=== PATIENT | female | born 1985 | race Caucasian/White ===

== ENCOUNTER 2022-09-11 23:01 | Emergency (ER) | payer OTHER, SELFPAY ==
--- NOTE | ~2022-09-11 | XR_ITS ---
EXAMINATION: XR HAND, LEFT CLINICAL INFORMATION: Dog bite/trauma COMPARISON: None TECHNIQUE: PA, lateral, and oblique views of the left hand. FINDINGS: No fracture or dislocation. No radiodense foreign body. No tracking soft tissue gas. The joint spaces throughout the hand and wrist are maintained. No osteophytes or erosions. XR/XR hand LT 2V IMPRESSION: No acute osseous injury or radiodense foreign body.
[2022-09-11 23:13] VITALS: BP 107/48; PULSE 86; RESP 18; TEMP 36.8; O2SAT 98; BMI 32.3
[2022-09-11 23:42] VITALS: BP 110/68; PULSE 88; RESP 18; TEMP 36.7; O2SAT 98
--- NOTE | 2022-09-12 00:33 | ED.ANIMALBIT ---
HPI - Animal Bite General Chief Complaint: Animal Bite Stated Complaint: dog bite Time Seen by Provider: 09/11/22 23:58 Source: patient Mode of arrival: ambulatory History of Present Illness HPI narrative: 37-year-old female who reached into the middle of it dog fight, the dog is known to her and is completely vaccinated, patient reports that she is vaccinated with tetanus. Related Data Allergies Allergy/AdvReac Type Severity Reaction Status Date / Time No Known Allergies Allergy Verified 09/11/22 23:13 Review of Systems Review of Systems: Pertinent positives and negatives as stated in HPI 10 point review of systems is otherwise negative. PMFSH Past Medical History Source: nursing notes reviewed Social History Social History Advance Directives: No Advance Directives Information Provided: No Physical Exam ED Vital Signs: Vital Signs - 24 hr 09/11/22 23:13 09/11/22 23:42 Temperature 98.2 F 98.1 F Pulse Rate 86 88 Respiratory Rate 18 18 Blood Pressure 107/48 L 110/68 Pulse Oximetry 98 98 Oxygen Delivery Method Room Air Room Air BMI result Body Mass Index 32.3 VITAL SIGNS: Reviewed. GENERAL: Well developed, well nourished, in no acute distress. HEAD: Normocephalic/atraumatic EYES: PERRLA, EOMI EARS: Ext canals without abnormality OROPHARYNX: no oral lesions noted, posterior pharynx clear LUNGS: Normal breath sounds. No adventitious sounds or accessory muscle use. SpO2<98> CARDIOVASCULAR: Regular rate and rhythm without noted murmurs ABDOMEN: Soft, non-tender, non-distended with bowel sounds. MUSCULOSKELETAL: No tenderness, deformities, or effusions noted on gross inspection. EXTREMITIES: No cyanosis, clubbing or edema; LEFT HAND: An area of 1.5 cm laceration located at the left thenar, full range of motion is noted of the thumb SKIN: Inspection of the skin reveals no rashes NEUROLOGIC: Alert and oriented x 4. Strength and sensation to light touch were grossly intact x 4. Course Course Course Narrative: 37-year-old female with history and clinical presentation consistent with dog bite in a provoked situation, patient is up-to-date on vaccines, review of x-ray does not demonstrate any soft tissue air, fracture and patient will have 2 sutures placed and be discharged home in stable condition with instructions to follow-up for suture removal in 7 days. Procedures Laceration Laceration 1: Site: hand Side (If applicable): left Size (cm): 1.5 Description: linear Depth: simple, single layer Local Anesthetic: lidocaine 1% Amount of anesthesia used (mL): 2 Pre-repair: wound explored, irrigated extensively and deep structures intact Skin layer closed with: nylon Size (cm): 4-0 Number of sutures: 2 Technique: simple, interrupted Discharge Plan Discharge Clinical Impression: Dog bite, Laceration of hand, left Patient Disposition: Home, Self-Care Instructions: Animal Bite (ED), Laceration (ED) Additional Instructions: 1. You may gently wash the area with soap and water and reapply antibiotic ointment with a Band-Aid. 2. Please return either to your primary care provider or to this ER for the removal of your sutures in 7 days. Return to the ER for any redness, swelling, fevers or chills. Referrals: Tori Glover NP [Primary Care Provider] -
== END 2022-09-12 01:20 | disposition home or self-care (01) ==
PROVIDERS: Emergency Provider Student in an Organized Health Care Education/Training Program; PCP Registered Nurse
DX: S61.412A Laceration without foreign body of left hand, initial encounter (principal); W54.0XXA Bitten by dog, initial encounter; Y93.9 Activity, unspecified; Y92.9 Unspecified place or not applicable; Y99.9 Unspecified external cause status; Z79.899 Other long term (current) drug therapy
CPT/HCPCS: 12001; 73120; 99283

== ENCOUNTER 2023-08-30 15:30 | Outpatient (AMB) | payer OTHER, SELFPAY ==
[2023-08-30 15:59] VITALS: BP 100/70; PULSE 96; TEMP 36.3; O2SAT 98; BMI 35.9
--- NOTE | 2023-08-30 15:59 | AM.OFFWIN_ITS ---
Intake Vital Signs 08/30/23 15:59 Height 4 ft 11 in Weight 80.739 kg BMI 35.9 BP 100/70 Blood Pressure Location Rt brachial Position Sitting Pulse 96 Pulse Source Pulse Oximeter Temp 97.3 F Temp Source Temporal Artery Scan Pulse Oximetry (%) 98 Oxygen Delivery Method Room Air Intake Visit Reasons: EP, r Intake Note: pt is here today for rt ankle pain started 2 days ago Patient Tobacco Use Status: Never used Tobacco Allergies No Known Allergies Allergy (Verified 08/30/23 16:24) Do you need a note to return to daycare/school/sports/work: Yes HPI HPI Comments History of Present Illness Details 1631 37-year-old female presents with complai nts of right ankle pain for the past few days, patient reports it started as an aching pain, progressively worsening she is sure if she rolled her ankle or not but she thinks she may have a few days ago she says her sister was looking at her ankle and pressing on it and made pain worse. Patient denies fall, blunt trauma. Denies numbness and tingling. Is using a crutch for help with ambulation. Has not taken anything for pain. Denies previous injuries to this ankle. No numbness, tingling, fevers or chills. Physical exam tenderness to palpation to the lateral aspect of right malleolus. No step-offs or deformities. 2+ dorsalis pedis, anterior tibialis posterior tibialis pulses equal bilateral. No foot drop. Normal sensation distally and normal capillary refill to bilateral lower extremities History and physical exam concerning for sprain/strain. Unlikely fracture dislocation. Unlikely threat to limit neurovascular compromise. Plan prednisone, no calabrese min, x-ray and orthopedic consult. Educated patient on diagnosis and treatment plan, answered all question, patient verbalizes understanding. At this time patient will be discharged home, advised to return with new or worsening symptoms. Educated on worrisome signs and symptoms and when to return. At this time I feel comfortable discharge home. [facility] Social History Patient Tobacco Use Status: Never used Tobacco Review of Systems Const Details: Constitutional : No Weight loss, No Fever, No Chills, No Fatigue, No Malaise ENT/Mouth : No sore throat, No Rhinorrhea Eyes: No Eye Pain, No Swelling, No Redness Cardiovascular : No Chest Pain, No SOB, No Dyspnea on Exertion, No Orthopnea, No Edema, No Palpitations Respiratory : No Cough, No Sputum, No Wheezing Gastrointestinal : No Nausea, No Vomiting, No Diarrhea, No Constipation, No abdominal Pain, No Hematochezia, No Melena Genitourinary : No Dysuria, No Urinary Frequency, No Hematuria, Musculoskeletal : + joint pain, No Myalgias, + Joint Swelling Skin : No Skin Lesions, No rash Neuro : No Weakness, No Numbness, No Dizziness, No Headache Psych : No Anxiety/Panic, No Depression All other systems reviewed and are negative All systems reviewed & are unremarkable except as noted in HPI and below Physical Exam Vital Signs: Last Vital Signs Temp 97.3 F 08/30/23 15:59 Pulse 96 08/30/23 15:59 BP 100/70 08/30/23 15:59 Pulse Ox 98 08/30/23 15:59 Oxygen Delivery Method Room Air 08/30/23 15:59 BMI result Body Mass Index 35.9 vss Appearance: Alert.? Oriented X3.? No acute distress.? Head: Normocephalic, atraumatic, no step-offs or deformities Eyes: Pupils equal, round and reactive to light.? Neck: Normal inspection.? Neck supple.? CVS: Normal heart rate and rhythm.? Pulses normal.? Respiratory: No respiratory distress.? Breath sounds normal.? Abdomen: Soft and nontender.? Skin: Skin warm and dry.? Normal skin color.? Normal skin turgor.? Extremities: No lower extremity edema.? No calf ttp. 5/5 strength to bilateral upper and lower extremities + tenderness to palpation to the lateral aspect of right malleolus. No step-offs or deformities. 2+ dorsalis pedis, anterior tibialis posterior tibialis pulses equal bilateral. No foot drop. Normal sensation distally and normal capillary refill to bilateral lower extremities Neuro: Oriented X 3.? No motor deficit.? No sensory deficit. CN 2-12 intact Assessment & Plan Assessment & Plan (1) Right ankle pain: Code(s): M25.571 - Pain in right ankle and joints of right foot Plan Take your medications as prescribed. If you were prescribed antibiotics today, it is important that you take your medication to their entirety, do not skip any doses, do not finish them early. Follow-up with your primary care provider this week. Return to the emergency department with new or worsening symptoms. Such as fevers, chills, chest pain, shortness of breath, nausea, vomiting, dizziness, headache, vision changes, lethargy In case of emergency call 911 Orders: Orders XR ankle RT 2V Today M25.571 - Pain in right ankle and joints of right foot Referrals Orthopedics Referral M25.571 - Pain in right ankle and joints of right foot Medications: New prednisone 20 mg PO DAILY 5 tabs 0RF 5 days naproxen 500 mg PO BID PRN 14 tabs 0RF pain Coding Level of Care Code Est Pt Level 3 (45092) Diagnoses Right ankle pain M25.571
== END 2023-08-30 16:55 | disposition home or self-care (01) ==
PROVIDERS: PCP Registered Nurse; Visit Provider Physician Assistant
DX: M25.571 Pain in right ankle and joints of right foot (principal)
CPT/HCPCS: 99213

== ENCOUNTER 2023-08-30 16:34 | Outpatient (REF) | payer OTHER, SELFPAY ==
--- NOTE | ~2023-08-30 | XR_ITS ---
EXAMINATION: XR ANKLE, RIGHT CLINICAL INFORMATION: Pain. COMPARISON: None available. TECHNIQUE: AP, lateral, and mortise views of the right ankle. FINDINGS: No evidence of acute fractures or malalignment. Ankle mortise is maintained. Mild diffuse nonspecific soft tissue thickening. No unexpected radiopaque foreign bodies. No abnormal soft tissue calcifications. XR/XR ankle RT 2V IMPRESSION: 1. No acute fractures or malalignment. 2. Mild nonspecific soft tissue thickening.
== END 2023-08-30 16:35 | disposition home or self-care (01) ==
LOC: HO.HMGCX 16:34
PROVIDERS: Visit Provider Physician Assistant
DX: M25.571 Pain in right ankle and joints of right foot (principal)
CPT/HCPCS: 73600

== ENCOUNTER 2023-10-26 09:33 | Outpatient (AMB) | payer OTHER, SELFPAY ==
--- NOTE | 2023-10-26 09:34 | A.OFFVIS_ITS ---
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 States she is not sure if she rolled her ankle approx on 08/28/23. States that she is only having pain in the ankle with increased activity or prolonged driving. Denies numbness and tingling. Seen with her PCP who made referral to orthopedics for further evaluation. Allergies No Known Allergies Allergy (Verified 08/30/23 16:24) Medication List - Last Reviewed 10/26/23 by NENA Mancini bupropion HCl 300 mg PO DAILY lorazepam 0.5 mg PO DAILY PRN sertraline mg PO HPI HPI Comments History of Present Illness Details Does not remember specifically what would have caused this. Points to lateral ankle. Overall pain has improved except when she has to drive. Pain is worse when she drives to work to the point she can't walk the day after. Otherwise there is no pain when she is working from home. Swelling has gotten better. Denies numbness. Treatment done so far: NSAIDs, was prescribed prednisone also [facility] Social History (Updated 10/26/23 @ 09:38 by Norma Nunez [facility]) Patient Tobacco Use Status: Never used Tobacco Current occupational status: employed Current occupation: [employer] Review of Systems Const All systems reviewed & are unremarkable except as noted in HPI and below Physical Exam Vital Signs: BMI result Body Mass Index 0.5 Constitutional: Patient appears to be in no acute distress, well nourished and well developed. MSK: No tenderness on/around medial malleolus, lateral malleolus, plantar fascia or Achillis tendon. Able to dorsiflex, plantar flex, invert, miya, without any pain. Able to stand at foot or heel without any pain. No ankle instability. Strength is 5/5 in all muscle groups tested. No increased tone noted. Neurological: Neurologic examination of the upper and lower extremities was nonfocal with intact sensation, muscle stretch reflexes and without focal motor deficits . Wharton?s negative bilaterally. Babinski was down going bilaterally. Clonus was negative. Gait is non-antalgic without loss of balance. Results Reviewed Results Reviewed: I independently reviewed the results of the following: Ankle x-ray done 08/30 was unremarkable. I reviewed records from the following: PCP Assessment & Plan Assessment & Plan (1) Right ankle sprain: Code(s): S93.401A - Sprain of unspecified ligament of right ankle, initial encounter Qualifiers: Encounter type: initial encounter Involved ligament of ankle: tibiofibular ligament Qualified Code(s): S93.431A - Sprain of tibiofibular ligament of right ankle, initial encounter Plan Suspect she had a right lateral ankle sprain, which is in the process of healing now, no signs of inflammation anymore. She has full range of motion and strength. Would put her on a lace-up ankle brace that she can wear when she drives or has to walk a lot or go to work. Continue to elevate and ice when at home. More importantly, discussed importance of good shoes with ankle stability. Assessment and plan discussed with patient, and patient was agreeable. All questions were answered thoroughly. Follow-up in 4-6 weeks. Call sooner if needed. Sheila Diaz MD, MAHNAZ Board Certified, [place] Board [employer] and Rehabilitation (ABPMR) Board Certified, [place] Board [employer] Electrodiagnostic Medicine (ABEM) Medications: Discontinued naproxen Discontinued Reason: Patient Completed Course 500 mg PO BID PRN 14 tabs 0RF pain Coding Level of Care Code New Pt Level 4 (32248) Diagnoses Sprain of tibiofibular ligament of right ankle, initial encounter S93.431A Encounter type: initial encounter Involved ligament of ankle: tibiofibular ligament
== END 2023-10-26 10:13 | disposition home or self-care (01) ==
PROVIDERS: PCP Registered Nurse; Visit Provider Physical Medicine & Rehabilitation
DX: S93.431A Sprain of tibiofibular ligament of right ankle, initial encounter (principal)
CPT/HCPCS: 99204

== ENCOUNTER → 2023-10-26 09:33 | Outpatient (BNVA) | payer OTHER, SELFPAY | PROVIDERS: PCP Registered Nurse; Visit Provider Physical Medicine & Rehabilitation ==

== ENCOUNTER 2023-12-07 10:05 | Outpatient (AMB) | payer OTHER, SELFPAY ==
--- NOTE | 2023-12-07 10:06 | A.OFFVIS_ITS ---
Intake Intake Visit Reasons: OV - right ankle sprain Intake Note: Yuly is a 38 year old female who presents today for a follow up visit for her right ankle sprain. Patient reports her pain has improved a little since her last visit. She states that the lace up ankle brace is making her pain worse when she was driving. Currently is having dull pain on the ankle. Allergies No Known Allergies Allergy (Verified 12/07/23 10:09) Medication List - Last Reconciled 12/07/23 by Sheila Diaz MD bupropion HCl 300 mg PO DAILY lorazepam 0.5 mg PO DAILY PRN sertraline mg PO HPI HPI Comments History of Present Illness Details Does not remember specifically what would have caused this. Points to lateral ankle. Overall pain has improved except when she has to drive. Pain is worse when she drives to work to the point she can't walk the day after. Otherwise there is no pain when she is working from home. Swelling has gotten better. Denies numbness. Treatment done so far: NSAIDs, was prescribed prednisone also Does not think she's improved a lot, maybe 50% better only. Pointing on anterior ankle. No swelling noted. Aches a lot. Used lace up brace but felt worse when worn during driving. Overall going on for 3 months since onset. But has not had PT yet. Although she admits that she does not have much pain anymore except for some ache or weird sensation. She has not driven to work in the last 2 weeks and maybe that has helped with improvement. [facility] Social History (Updated 12/07/23 @ 10:10 by Jose Elise) Alcohol intake: never Patient Tobacco Use Status: Never used Tobacco Current occupational status: employed Current occupation: [employer] Physical Exam Constitutional: Patient appears to be in no acute distress, well nourished and well developed. MSK: Less tenderness around Lateral malleolus right. No tenderness on/around medial malleolus, plantar fascia or Achillis tendon. Able to dorsiflex, plantar flex, invert, miya, without any pain. Able to stand at foot or heel without any pain. No ankle instability. Strength is 5/5 in all muscle groups tested. No increased tone noted. Able to stand on heels and toes. Neurological: Neurologic examination of the upper and lower extremities was nonfocal with intact sensation, muscle stretch reflexes and without focal motor deficits . Wharton?s negative bilaterally. Babinski was down going bilaterally. Clonus was negative. Gait is non-antalgic without loss of balance. Results Reviewed Results Reviewed: Ordering Physician: Fredy Thompson Date of Service: 08/30/23 Procedure(s): XR ankle RT 2V Accession Number(s): [id number] cc: Fredy Thompson~ EXAMINATION: XR ANKLE, RIGHT CLINICAL INFORMATION: Pain. COMPARISON: None available. TECHNIQUE: AP, lateral, and mortise views of the right ankle. FINDINGS: No evidence of acute fractures or malalignment. Ankle mortise is maintained. Mild diffuse nonspecific soft tissue thickening. No unexpected radiopaque foreign bodies. No abnormal soft tissue calcifications. XR/XR ankle RT 2V IMPRESSION: 1. No acute fractures or malalignment. 2. Mild nonspecific soft tissue thickening. Assessment & Plan Assessment & Plan (1) Right ankle sprain: Code(s): S93.401A - Sprain of unspecified ligament of right ankle, initial encounter Qualifiers: Encounter type: initial encounter Involved ligament of ankle: tibiofibu lar ligament Qualified Code(s): S93.431A - Sprain of tibiofibular ligament of right ankle, initial encounter Plan On exam it appears to have improved, without any signs of tenderness, swelling or redness. At this point it would be reasonable to start her on physical therapy for range of motion and gradual strengthening. She can go back to driving with or without the lace-up brace. Would still encourage using the lace-up brace when she will be walking a lot. No restrictions. But watch out for any development redness, swelling or ankle giving out. Assessment and plan discussed with patient, and patient was agreeable. All questions were answered thoroughly. Follow-up 3 months. Sheila Diaz MD, MAHNAZ Board Certified, [place] Board [employer] and Rehabilitation (ABPMR) Board Certified, [place] Board [employer] Electrodiagnostic Medicine (ABEM) Orders: Orders PT Evaluation and Treatment Today S93.401A - Sprain of unspecified ligament of right ankle, initial encounter Coding Level of Care Code Est Pt Level 3 (48653) Diagnoses Sprain of tibiofibular ligament of right ankle, initial encounter S93.431A Encounter type: initial encounter Involved ligament of ankle: tibiofibular ligament
== END 2023-12-07 10:27 | disposition home or self-care (01) ==
PROVIDERS: PCP Registered Nurse; Visit Provider Physical Medicine & Rehabilitation
DX: S93.431A Sprain of tibiofibular ligament of right ankle, initial encounter (principal)
CPT/HCPCS: 99213

== ENCOUNTER → 2023-12-07 10:05 | Outpatient (BNVA) | payer OTHER, SELFPAY | PROVIDERS: PCP Registered Nurse; Visit Provider Physical Medicine & Rehabilitation ==

== ENCOUNTER 2024-03-13 09:01 | Outpatient (AMB) | payer OTHER, SELFPAY ==
--- NOTE | 2024-03-13 09:02 | A.OFFVIS_ITS ---
Vital Signs 03/13/24 09:03 Height 4 ft 11 in Weight 178 lb BMI 35.9 Intake Visit Reasons: OV - right ankle sprain Intake Note: Yuly is a 38 year old female who presents today for a follow up visit for her right ankle sprain. Patient reports that the ankle is doing well, she still does not fell comfortable running ir jumping as she is worried that this would reverse her progress. Allergies No Known Allergies Allergy (Verified 03/13/24 09:08) Medication List - Last Reconciled 03/13/24 by Sheila Diaz MD bupropion HCl XL 300 mg PO DAILY lorazepam 0.5 mg PO DAILY PRN sertraline mg PO HPI Comments Details: 10/26/23 remember specifically what would have caused this. Points to lateral ankle. Overall pain has improved except when she has to drive. Pain is worse when she drives to work to the point she can't walk the day after. Otherwise there is no pain when she is working from home. Swelling has gotten better. Denies numbness. Treatment done so far: NSAIDs, was prescribed prednisone also 12/07/23 Does not think she's improved a lot, maybe 50% better only. Pointing on anterior ankle. No swelling noted. Aches a lot. Used lace up brace but felt worse when worn during driving. Overall going on for 3 months since onset. But has not had PT yet. Although she admits that she does not have much pain anymore except for some ache or weird sensation. She has not driven to work in the last 2 weeks and maybe that has helped with improvement. 03/13/24 more like general ache, not constant anymore, usually when driving or after standing/walking. She is still in PT, they want to start treadmill [facility] Social History Alcohol intake: never Patient Tobacco Use Status: Never used Tobacco Current occupational status: employed Current occupation: [employer] Physical Exam Vital Signs: BMI result Body Mass Index 35.9 Constitutional: Patient appears to be in no acute distress, well nourished and well developed. MSK: No more tenderness around Lateral malleolus right. No tenderness on/around medial malleolus, plantar fascia or Achillis tendon. Able to dorsiflex, plantar flex, invert, miya, without any pain. Able to stand at foot or heel without any pain. No ankle instability. Strength is 5/5 in all muscle groups tested. No increased tone noted. Gait normal. Neurological: Neurologic examination of the upper and lower extremities was nonfocal with intact sensation, muscle stretch reflexes and without focal motor deficits . Wharton?s negative bilaterally. Babinski was down going bilaterally. Clonus was negative. Gait is non-antalgic without loss of balance. Results Reviewed Results Reviewed: Ordering Physician: Fredy Thompson Date of Service: 08/30/23 Procedure(s): XR ankle RT 2V Accession Number(s): [id number] cc: Fredy Thompson~ EXAMINATION: XR ANKLE, RIGHT CLINICAL INFORMATION: Pain. COMPARISON: None available. TECHNIQUE: AP, lateral, and mortise views of the right ankle. FINDINGS: No evidence of acute fractures or malalignment. Ankle mortise is maintained. Mild diffuse nonspecific soft tissue thickening. No unexpected radiopaque foreign bodies. No abnormal soft tissue calcifications. XR/XR ankle RT 2V IMPRESSION: 1. No acute fractures or malalignment. 2. Mild nonspecific soft tissue thickening. Assessment & Plan Assessment & Plan (1) Right ankle sprain: Code(s): S93.401A - Sprain of unspecified ligament of right ankle, initial encounter Category: Medical Qualifiers: Encounter type: initial encounter Involved ligament of ankle: tibiofibular ligament Qualified Code(s): S93.431A - Sprain of tibiofibular ligament of right ankle, initial encounter Plan Continue PT, start more active exercises. There is no sign of inflammation or injury anymore. Encouraged patient to challenge herself a little bit more. Assessment and plan discussed with patient, and patient was agreeable. All questions were answered thoroughly. Follow-up 6 months. Sheila Diaz MD, MAHNAZ Board Certified, [place] [employer] and Rehabilitation (ABPMR) Board Certified, [place] [employer] Electrodiagnostic Medicine (ABEM) Coding Level of Care Code Est Pt Level 3 (12195) Diagnoses Sprain of tibiofibular ligament of right ankle, initial encounter S93.431A Encounter type: initial encounter Involved ligament of ankle: tibiofibular ligament
[2024-03-13 09:03] VITALS: BMI 35.9
== END 2024-03-13 09:19 | disposition home or self-care (01) ==
PROVIDERS: PCP Registered Nurse; Visit Provider Physical Medicine & Rehabilitation
DX: S93.431A Sprain of tibiofibular ligament of right ankle, initial encounter (principal)
CPT/HCPCS: 99213

== ENCOUNTER → 2024-03-13 09:01 | Outpatient (BNVA) | payer OTHER, SELFPAY | PROVIDERS: PCP Registered Nurse; Visit Provider Physical Medicine & Rehabilitation ==

== ENCOUNTER 2024-04-03 08:00 | Outpatient (RCR) | payer OTHER, SELFPAY ==
--- NOTE | 2024-01-22 10:52 | MHC.PT.EP ---
[facility] [place] Office [place] [facility] [place] Office [address] [phone] F: [phone] F: [phone] F: [phone] F: [phone] Physical Therapy Plan of Care Date of Evaluation: 01/22/24 Date of Surgery: Diagnosis: sprain of unspecified ligament of right ankle Assessment: Patient is a 38 year old R handed female who presents with s/s consistent with ankle pain, sprain of unspecified ligament. 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 Patient past medical history includes asthma. Current impairments include pain, balance, ROM, strength, activity tolerance and functional mobility. Functional limitations include decreased ability to walk, stand, drive, negotiate stairs and take dog for walks. Patient is motivated with good rehab potential. Skilled PT will address impairments and functional limitations in order to achieve goals. Frequency and Duration: The patient will be seen 2x/week for 5 weeks Short Term Goals: I with HEP - 2 weeks Full pain free AROM - 3 weeks Symmetrical gait - 3 weeks SLB > 20 seconds - 3 weeks Assisted Goals: strength 4+/5 grossly - 5 weeks LEFS 66/80 5 weeks return to PLOF - 5 weeks Treatment Plan: Modalities to reduce pain, spasms and effusion. Manual therapy to restore motion and function. Therapeutic exercise to improve strength and flexibility. Neuromuscular re-education for posture and balance. Therapeutic activities to return to functional activities of daily living. Electronically signed by: Ashok Blount PT Please sign and return to therapist. Thank you for your referral.
--- NOTE | 2024-07-04 11:44 | MHC.PT.DC ---
[facility] [place] [facility] [place] [facility] [place] [facility] [address] Armando Jang [address] [phone] F: [phone] F: [phone] F: [phone] F: [phone] Physical Therapy Discharge Report Diagnosis: sprain of unspecified ligament of right ankle Date of Surgery: Date of Evaluation: 01/22/24 Date of Discharge: 04/26/24 Treatments to Date: 15 Cancellations to Date: No Shows to Date: Discharge Status: Achieved Goals Independent with HEP Discharge Summary: 04/03/24: I with HEP, Full pain free AROM. Symmetrical gait, SLB > 20 seconds, strength 4+/5 grossly, LEFS 60/80. Motivated and compliant throughout. Good progress and back to PLOF. Appropriate to d/c to HEP at this time. 03/20/24: pt progressing well. TM initiated today with good response. we will increased speed and incline/decline nv and also plan d/c. 03/13/24: pt has follow up today. we will plan to progress on TM next 2 visits. 03/06/24: reduced s/s overall. pt notes jumping and hopping are limitations still but overwise, minimal. discussed plan with pt and we will continue 1x/week for 3 weeks to pursue continued progress. 03/04/24: pt with good response. min pain. no functional limitations. we will plan to d/c to HEP NV. 03/01/24: good progress continues. no pain today. full ROM. balance improving. 02/22/24: continues to respond well to ex. min discomfort and min increase with all ex. she is doing higher level balance and strength ex. continue to progress as tolerated. 02/20/24: pt progressing well with skilled PT. no adverse reactions from above program. added shuttle for strength with good response. notes 3/10 pain often. 02/14/25: minor discomfort noted with HR/TR but overall improving functionally and symptomatically. progress as tolerated. 02/13/24: min pain with program today. continuing to progress each visit. we will likely transition to HEP in 2 weeks time. 02/08/24: pt has been feeling better overall. we modified treatment to private room due to reported fragrance allergy. 02/06/24: pt progressing well with skilled PT. no pain during program. progress as tolerated. 02/01/24: pt with no s/s today. progressing well. full ROM and strength improving. 01/30/24: pt continues to progress well, experienced some DOMS last visit which we educated on. continue to progress as tolerated. 01/25/24: pt progressing well. normal/symmetrical gait. added higher level ex. progress as tolerated. CP to finish. Patient is a 38 year old R handed female who presents with s/s consistent with ankle pain, sprain of unspecified ligament. 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 Patient past medical history includes asthma. Current impairments include pain, balance, ROM, strength, activity tolerance and functional mobility. Functional limitations include decreased ability to walk, stand, drive, negotiate stairs and take dog for walks. Patient is motivated with good rehab potential. Skilled PT will address impairments and functional limitations in order to achieve goals. Electronically signed by: Ashok Blount, PT Please sign and return to therapist. Thank you for your referral.
== END 2024-07-04 11:45 | disposition home or self-care (01) ==
LOC: HO.PTCHIC 08:00
PROVIDERS: PCP Nurse Practitioner Family; Visit Provider Physical Medicine & Rehabilitation
DX: S93.401A Sprain of unspecified ligament of right ankle, initial encounter (principal)
CPT/HCPCS: 97110; 97112; 97161